=== PATIENT | male | born 1960 | race Caucasian/White ===

== ENCOUNTER 2016-06-24 15:23 | Emergency (ER) | payer OTHER ==
[~2016-06-24] VITALS: Ht 167.6 cm; Wt 60.5 kg
[2016-06-24] MEDS ORDERED: VYVANSE10 MG PO (15:37)
[2016-06-24] MEDS ORDERED: NAPROSYN500 MG PO (16:37)
[2016-06-24 16:50] VITALS: BP 148/89
== END 2016-06-24 16:51 | disposition home or self-care (01) ==
LOC: EME 15:23
DX: S43.401A Unspecified sprain of right shoulder joint, initial encounter (principal); W01.0XXA Fall on same level from slipping, tripping and stumbling without subsequent striking against object, initial encounter
CPT/HCPCS: 73030; 99281; 99284